=== PATIENT | female | born 1995 | race Caucasian/White ===

== ENCOUNTER 2017-04-09 12:33 | Emergency (ER) | payer BC, SELFPAY ==
[2017-04-09 12:41] VITALS: BP 110/76; PULSE 110; RESP 20; TEMP 36.6; O2SAT 97; BMI 18.4
[2017-04-09 12:53] LABS: UTC Influenza A Antigen Positive (Negative); UTC Influenza B Antigen Negative (Negative)
--- NOTE | 2017-04-09 13:06 | HMH.EDUTC ---
[facility] [place]: Flu Disposition: Home, Self-Care Condition on Discharge: Good Instructions: Influenza Additional Instructions: Increase fuids rest Precautions discussed with patient See primary care this week if no improvement If symptoms worsen or do not improve return or be seen in the ER Tylenol and ibuprofen as needed for pain or fever Time of Disposition: 13:10 Medical Decision Making Vital Signs: 04/09/17 12:41 Temperature 97.8 F Temperature Source Temporal Artery Scan Pulse Rate [Brachial] 110 H Respiratory Rate 20 Blood Pressure [Right Arm] 110/76 Blood Pressure Mean [Right Arm] 87 Blood Pressure Source [Right Arm] Automatic Cuff Blood Pressure Position [Right Arm] Sitting 02 Sat by Pulse Oximetry 97 Oxygen Delivery Method Room Air - Lab Data Lab Results 04/09/17 12:53: Influenza Type A Ag Positive A, Influenza Type B Ag Negative - Malachi Inquiry Pt receiving controlled substance: No [facility] [place] - General Chief complaint: Urgent Treatment Center Stated complaint: FLU LIKE SYMPTOMS Time Seen by Provider: 04/09/17 13:06 Mode of Arrival: Ambulatory Source of Information: Patient Limitations: No Limitations Description of Symptoms (Recalled from Triage Doc. by RN): FEVER/ H/A HEENT Symptoms (Recalled from RN notes): Yes Resp Symptoms (Recalled from RN notes): No Skin Symptoms (Recalled from RN notes): No MS Symptoms (Recalled from RN notes): No Functional Status (Recalled from RN notes): NA - History of Present Illness Provider Complaint: 22-year-old female presents with body aches, chills, fever, tiredness, and congestion since last Sunday. - Related Data Home Medications Medication Instructions Recorded Confirmed No Known Home Medications [No 04/09/17 04/09/17 Known Home Medications] Allergies Allergy/AdvReac Type Severity Reaction Status Date / Time No Known Allergies Allergy Verified 04/09/17 12:45 - Worker's Comp Is this a Worker's Comp case?: No [facility] History I have reviewed the patient's past medical history: Yes - *Social History Alcohol Intake: never - Psychiatric History Expresses thoughts of harming self/others: None Suicide Plan Description: No Plan ROS Obtained: Yes All systems reviewed & no additional complaints - Constitutional Constitutional: Reports system reviewed and no additional complaints, except as docu, Reports body ache, Reports chills, Reports fever(s), Reports weakness - Eyes Eyes: Reports system reviewed and no additional complaints, except as docu - ENT Ears, Nose, Mouth, and Throat: Reports system reviewed and no additional complaints, except as docu - Cardiovascular Cardiovascular: Reports system reviewed and no additional complaints, except as docu - Respiratory Respiratory: Yes system reviewed and no additional complaints, except as docu, Yes as per HPI, Yes chest congestion, Yes cough - Gastrointestinal Gastrointestingal: Reports: system reviewed and no additional complaints, except as docu - Musculoskeletal Musculoskeletal: Reports system reviewed and no additional complaints, except as docu - Integumentary/Breasts Skin/Breast: Reports system reviewed and no additional complaints, except as docu - Neurologic Neurologic: Reports system reviewed and no additional complaints, except as docu - Endocrine Endocrine: Reports system reviewed and no additional complaints, except as docu - Hematologic/Lymphatic Henatologic/Lymphatic: Reports system reviewed and no additional complaints, except as docu - Allergic/Immunologic Allergic/Immunologic: Reports system reviewed and no additional complaints, except as docu Physical Exam - General General appearance: alert, in no apparent distress - Head Head exam: atraumatic - Eye Eye exam: Present: normal appearance, PERRL - ENT ENT exam: Present: normal exam, normal oropharynx, TM's normal bilaterally - Neck Neck exam
--- NOTE | 2017-04-09 13:09 | ED_ITS ---
[facility] [place] Clinical Impression: Flu Disposition: Home, Self-Care Condition on Discharge: Good Instructions: Influenza Additional Instructions: Increase fuids rest Precautions discussed with patient See primary care this week if no improvement If symptoms worsen or do not improve return or be seen in the ER Tylenol and ibuprofen as needed for pain or fever Time of Disposition: 13:10 Medical Decision Making Vital Signs: 04/09/17 12:41 Temperature 97.8 F Temperature Source Temporal Artery Scan Pulse Rate [Brachial] 110 H Respiratory Rate 20 Blood Pressure [Right Arm] 110/76 Blood Pressure Mean [Right Arm] 87 Blood Pressure Source [Right Arm] Automatic Cuff Blood Pressure Position [Right Arm] Sitting 02 Sat by Pulse Oximetry 97 Oxygen Delivery Method Room Air - Lab Data Lab Results 04/09/17 12:53: Influenza Type A Ag Positive A, Influenza Type B Ag Negative - Malachi Inquiry Pt receiving controlled substance: No [facility] [place] - General Chief complaint: Urgent Treatment Center Stated complaint: FLU LIKE SYMPTOMS Time Seen by Provider: 04/09/17 13:06 Mode of Arrival: Ambulatory Source of Information: Patient Limitations: No Limitations Description of Symptoms (Recalled from Triage Doc. by RN): FEVER/ H/A HEENT Symptoms (Recalled from RN notes): Yes Resp Symptoms (Recalled from RN notes): No Skin Symptoms (Recalled from RN notes): No MS Symptoms (Recalled from RN notes): No Functional Status (Recalled from RN notes): NA - History of Present Illness Provider Complaint: 22-year-old female presents with body aches, chills, fever, tiredness, and congestion since last Sunday. - Related Data Home Medications Medication Instructions Recorded Confirmed No Known Home Medications [No 04/09/17 04/09/17 Known Home Medications] Allergies Allergy/AdvReac Type Severity Reaction Status Date / Time No Known Allergies Allergy Verified 04/09/17 12:45 - Worker's Comp Is this a Worker's Comp case?: No [facility] History I have reviewed the patient's past medical history: Yes - *Social History Alcohol Intake: never - Psychiatric History Expresses thoughts of harming self/others: None Suicide Plan Description: No Plan ROS Obtained: Yes All systems reviewed & no additional complaints - Constitutional Constitutional: Reports system reviewed and no additional complaints, except as docu, Reports body ache, Reports chills, Reports fever(s), Reports weakness - Eyes Eyes: Reports system reviewed and no additional complaints, except as docu - ENT Ears, Nose, Mouth, and Throat: Reports system reviewed and no additional complaints, except as docu - Cardiovascular Cardiovascular: Reports system reviewed and no additional complaints, except as docu - Respiratory Respiratory: Yes system reviewed and no additional complaints, except as docu, Yes as per HPI, Yes chest congestion, Yes cough - Gastrointestinal Gastrointestingal: Reports: system reviewed and no additional complaints, except as docu - Musculoskeletal Musculoskeletal: Reports system reviewed and no additional complaints, except as docu - Integumentary/Breasts Skin/Breast: Reports system reviewed and no additional complaints, except as docu - Neurologic Neurologic: Reports s
== END 2017-04-09 13:13 | disposition home or self-care (01) ==
PROVIDERS: Emergency Provider Nurse Practitioner Family; Family Provider Family Medicine
DX: J11.1 Influenza due to unidentified influenza virus with other respiratory manifestations (principal)
CPT/HCPCS: 87804; 99201

== ENCOUNTER 2017-05-22 05:59 | Emergency (ER) | payer BC, SELFPAY ==
[2017-05-22 06:02] VITALS: BP 133/83; PULSE 72; RESP 14; TEMP 36.5; O2SAT 98; BMI 18.4
--- NOTE | 2017-05-22 06:13 | XR_ITS ---
XR knee LT 3V HISTORY: Left knee pain ITS.REASON: pain ORDERING PHYSICIAN: Juaquin Tejeda MD PATIENT AGE: 22 years COMPARISON: 03/18/2007 FINDINGS: No fracture or dislocation. No lytic or blastic change. Normal mineralization. No significant arthritic changes evident. No other significant findings IMPRESSION: Negative left Knee
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
[2017-05-22 07:03] VITALS: BP 118/78; PULSE 72; RESP 14; TEMP 37; O2SAT 100
== END 2017-05-22 07:05 | disposition home or self-care (01) ==
PROVIDERS: Emergency Provider Emergency Medicine; Family Provider Family Medicine
DX: M23.92 Unspecified internal derangement of left knee (principal); F17.210 Nicotine dependence, cigarettes, uncomplicated
CPT/HCPCS: 73562; 99282

== ENCOUNTER → 2018-06-19 10:32 | Outpatient (CLI) | payer OTHER, SELFPAY ==
[2018-06-19 11:35] LABS: Basophils # 0.1 K/mm3 (0-0.2); Basophils % 0.6 % (0.1-2.0); Eosinophils # 0.2 K/mm3 (0.0-0.4); Hematocrit 40.8 % (37.0-47.0); Hemoglobin 13.6 g/dL (12.2-16.2); Lymphocytes # 3.2 K/mm3 (0.7-4.5); Mean Corpuscular HGB Conc 33.2 g/dL (31.8-35.4); Mean Corpuscular Hemoglobin 31.6 pg (27.0-31.2); Mean Corpuscular Volume 95.3 fl (81-99); Mean Platelet Volume 9.7 fl (7.4-10.4); Monocytes # 0.4 K/mm3 (0.1-1.0); Monocytes % 4.4 % (1.7-9.3); Platelet Count 225 K/mm3 (142-424); Red Blood Count 4.29 M/mm3 (4.20-5.40); Red Cell Distribution Width 12.8 % (11.5-17.5); White Blood Count 9.9 K/mm3 (4.8-10.8)
[2018-06-19 13:13] LABS: Monoscreen (Rapid) Negative (Negative)
== END ==
PROVIDERS: Visit Provider Nurse Practitioner Family
DX: R07.0 Pain in throat (principal); R53.83 Other fatigue
CPT/HCPCS: 36415; 85025; 86318

== ENCOUNTER → 2018-07-17 14:44 | Outpatient (CLI) | payer OTHER, SELFPAY ==
[2018-07-17 15:25] LABS: Basophils # 0.1 K/mm3 (0-0.2); Basophils % 0.9 % (0.1-2.0); Eosinophils # 0.1 K/mm3 (0.0-0.4); Eosinophils % 1.6 % (0.1-12.0); Lymphocytes % 29.3 % (10-50); Mean Corpuscular HGB Conc 33.3 g/dL (31.8-35.4); Mean Corpuscular Hemoglobin 31.4 pg (27.0-31.2); Mean Corpuscular Volume 94.1 fl (81-99); Mean Platelet Volume 9.7 fl (7.4-10.4); Monocytes # 0.4 K/mm3 (0.1-1.0); Monocytes % 5.4 % (1.7-9.3); Neutrophils # 4.3 K/mm3 (1.8-7.8); Neutrophils % 62.7 % (37.0-80.0); Platelet Count 218 K/mm3 (142-424); Red Blood Count 4.46 M/mm3 (4.20-5.40); Red Cell Distribution Width 12.7 % (11.5-17.5); White Blood Count 6.9 K/mm3 (4.8-10.8)
[2018-07-19 06:23] LABS: Rubella Antibodies, IgG 1.75 index (Immune >0.99)
[2018-07-19 07:24] LABS: HIV Screen 4th Generation wRfx Non Reactive (Non Reactive)
[2018-07-19 10:11] LABS: Hepatitis B Surface Antigen Negative (Negative); Hepatitis C Antibody <0.1 s/co ratio (0.0-0.9); Rapid Plasma Reagin Ab Titer Non Reactive (NonRea<1:1)
== END ==
PROVIDERS: Visit Provider Nurse Practitioner Obstetrics & Gynecology
DX: Z34.90 Encounter for supervision of normal pregnancy, unspecified, unspecified trimester (principal)
CPT/HCPCS: 36415; 85025; 86592; 86703; 86762; 86850; 87340; 87380; G0432

== ENCOUNTER → 2018-07-23 12:53 | Outpatient (CLI) | payer OTHER, SELFPAY ==
--- NOTE | 2018-07-23 12:58 | US_ITS ---
US OB transvaginal HISTORY: ITS.REASON: US OB Dates ORDERING PHYSICIAN: Michael Jackson MD PATIENT AGE: 23 years COMPARISON: None FINDINGS: An intrauterine gestational sac is present with a pole with a crown-rump length of 0.46cm correlating to gestational age of 6w2d. heart tones are present with an FHR of 119 bpm's. Yolk sac is noted. There is a 2.4 cm left corpus luteum cyst. IMPRESSION: Live intrauterine gestation of 6 weeks 2 days. Estimated due date by ultrasound is 03/16/2019
== END ==
PROVIDERS: PCP Family Medicine; Visit Provider Nurse Practitioner Obstetrics & Gynecology
DX: O26.841 Uterine size-date discrepancy, first trimester (principal)
CPT/HCPCS: 76817

== ENCOUNTER 2018-09-08 18:06 | Outpatient (CLI) | payer OTHER, SELFPAY ==
[2018-09-08 18:13] VITALS: BP 94/61; PULSE 74; RESP 16; TEMP 36.7; O2SAT 96; BMI 17.7
[2018-09-08 18:48] LABS: Basophils % 0.4 % (0.1-2.0); Eosinophils # 0.1 K/mm3 (0.0-0.4); Eosinophils % 0.5 % (0.1-12.0); Lymphocytes # 2.7 K/mm3 (0.7-4.5); Lymphocytes % 23.6 % (10-50); Mean Corpuscular HGB Conc 31.6 g/dL (31.8-35.4); Mean Corpuscular Hemoglobin 30.6 pg (27.0-31.2); Mean Corpuscular Volume 96.9 fl (81-99); Mean Platelet Volume 9.2 fl (7.4-10.4); Monocytes # 0.4 K/mm3 (0.1-1.0); Monocytes % 3.5 % (1.7-9.3); Neutrophils # 8.3 K/mm3 (1.8-7.8); Platelet Count 246 K/mm3 (142-424); Red Blood Count 4.23 M/mm3 (4.20-5.40); Red Cell Distribution Width 12.9 % (11.5-17.5); White Blood Count 11.5 K/mm3 (4.8-10.8)
[2018-09-08 18:56] LABS: Anion Gap 15.8 mEq/L (5-15); Blood Urea Nitrogen 7 mg/dL (7-18); Calcium 8.9 mg/dL (8.5-10.1); Carbon Dioxide 24 mmol/L (21.0-32.0); Chloride 102 mmol/L (98-107); Creatinine Clearance Estimated 137 mL/min (50-200); Creatinine,Serum 0.55 mg/dL (0.55-1.02); Estimated Glomerular Filt Rate 137 ml/min (>60); GFR (African American) 166 ML/MIN (>60); Glucose 92 mg/dL (74-106); Potassium 3.8 mmoL/L (3.5-5.1); Sodium 138 mmol/L (136-145)
== END 2018-09-08 20:37 | disposition home or self-care (01) ==
LOC: OBOUT 18:08 → OB 18:09
PROVIDERS: PCP Family Medicine; Visit Provider Nurse Practitioner Obstetrics & Gynecology
DX: O21.0 Mild hyperemesis gravidarum (principal); Z3A.13 13 weeks gestation of pregnancy
CPT/HCPCS: 80048; 85025; 94761; 96360; 96361; 96367

== ENCOUNTER → 2018-10-30 14:49 | Outpatient (CLI) | payer OTHER, SELFPAY ==
--- NOTE | 2018-10-30 14:55 | US_ITS ---
PROCEDURE: US OB /MATERNAL DETAIL CLINICAL INDICATION: US OB Complete COMPARISON: OBTV US OB transvaginal from 07/23/2018 FINDINGS: Single viable intrauterine gestation. Breech position. Placenta: Anteriorplacenta grade 1. There is average amount fluid. The cervix appears satisfactory. Closed and measuring average 4 cm in length. Complete survey performed and was unremarkable on the submitted images as in PACS. No discrete anomalies identified on survey imaging by technologist. Active fetus. Three-vessel cord with satisfactory umbilical cord insertion. 4- chamber heart noted. Survey of brain & ventricles Unremarkable. Face and neck survey unremarkable. Diaphragm and chest views unremarkable. Abdomen: Both kidneys noted and unremarkable. Stomach noted and satisfactory. Spine: Survey of the spine satisfactory with no anomalies identified nor imaged. Both arms and legs noted. Amniotic Fluid: Adequate. Maternal adnexa: No significant findings. Measurements: Average ultrasound age 20.14 week. Gestational Age 20.14 week Estimated due date by ultrasound age 0103/18/2019. Estimated weight 347.5 ggrams. BPD = 19 weeks 6 days OFD = 20 weeks 3 days HC = 19 weeks 3 days AC = 20 weeks 4 days FL = 20 weeks 4 days Growth Percentile= 40 percent% Heart Rate = 156 bpm Cerebellum = 20 weeks 4 days Humerus = 20 weeks 5 days HC/AC is 1.1 CI is 0.76 FL/BPD is 0.73 FL/AC is 0.22 IMPRESSION: There is a single live fetus present in breech presentation with an average ultrasound age of 20 weeks and 1 day. heart and body motion noted. No obvious anomalies. All parameters correlate. Please see above for detail. Dictated by: Erick Mcgarry MD 10/30/2018 17:29 Signed by: <Electronically signed by Erick Mcgarry MD in [place]> 10/30/2018 17:29
== END ==
PROVIDERS: PCP Family Medicine; Visit Provider Nurse Practitioner Obstetrics & Gynecology
DX: Z36.0 Encounter for antenatal screening for chromosomal anomalies (principal)
CPT/HCPCS: 76811

== ENCOUNTER 2018-12-11 12:38 | Outpatient (CLI) | payer OTHER, SELFPAY ==
[2018-12-11 12:41] VITALS: BMI 19.2
[2018-12-11 12:56] VITALS: BP 119/63; PULSE 85; RESP 18; TEMP 36.7; O2SAT 97; BMI 19.2
[2018-12-11 13:01] LABS: Microscopic, Urine URINE MICROSCOPIC (MICROSCOPIC)
[2018-12-11 13:20] LABS: Appearance,Urine CLEAR (Clear); Bilirubin,Urine Negative (Negative); Blood, Urine Negative (Negative); Color,Urine YELLOW (Yellow); Glucose,Urine (UA) Negative (Negative); Ketones,Urine Negative (Negative); Leukocyte Esterase,Urine TRACE (Negative); Nitrate,Urine Negative (Negative); Protein,Urine Negative (Negative); Urobilinogen,Urine 0.2 EU/dl (0.2)
[2018-12-11 13:29] LABS: Amphetamine/Metha Screen,Urine Negative ng/mL (<1000); Barbiturates Screen,Urine Negative ng/mL (<200); Benzodiazepines Screen,Urine Negative ng/mL (<200); Cannabinoid Screen,Urine Negative ng/mL (<50); Cocaine Screen,Urine Negative ng/mL (<300); Methadone Screen,Urine Negative ng/mL (<300); Opiate Screen,Urine Negative ng/mL (<300); Phencyclidine Screen,Urine Negative ng/mL (<25)
[2018-12-11 13:32] LABS: Bacteria,Urine Trace /lpf
[2018-12-11 14:04] LABS: Fetal Fibronectin (Rapid) Negative (Negative)
== END 2018-12-11 14:20 | disposition home or self-care (01) ==
LOC: OBOUT 12:39 → OB 12:39
PROVIDERS: PCP Family Medicine; Visit Provider Nurse Practitioner Obstetrics & Gynecology
DX: O47.02 False labor before 37 completed weeks of gestation, second trimester (principal); Z3A.26 26 weeks gestation of pregnancy
CPT/HCPCS: 59025; 80305; 81001; 82731

== ENCOUNTER → 2018-12-19 08:42 | Outpatient (CLI) | payer OTHER, SELFPAY ==
[2018-12-19 09:26] LABS: Glucose,Fasting 67 mg/dL (60-105)
[2018-12-19 10:53] LABS: Glucose 1 Hour 78 mg/dL (74-106)
== END ==
PROVIDERS: Visit Provider Nurse Practitioner Obstetrics & Gynecology
DX: Z34.90 Encounter for supervision of normal pregnancy, unspecified, unspecified trimester (principal)
CPT/HCPCS: 36415; 82951

== ENCOUNTER 2019-01-24 13:05 | Outpatient (CLI) | payer OTHER, SELFPAY ==
[2019-01-24 13:17] VITALS: BMI 22.3
[2019-01-24 13:25] LABS: Microscopic, Urine URINE MICROSCOPIC (MICROSCOPIC)
[2019-01-24 13:26] LABS: Appearance,Urine CLEAR (Clear); Bilirubin,Urine Negative (Negative); Blood, Urine Negative (Negative); Color,Urine YELLOW (Yellow); Glucose,Urine (UA) Negative (Negative); Ketones,Urine Negative (Negative); Leukocyte Esterase,Urine TRACE (Negative); Nitrate,Urine Negative (Negative); Protein,Urine Negative (Negative); Specific Gravity, Urine <= 1.005 (1.005-1.030); Urobilinogen,Urine 0.2 EU/dl (0.2)
[2019-01-24 13:33] VITALS: BP 116/68; PULSE 74; RESP 17; TEMP 36.5; O2SAT 98
[2019-01-24 13:35] VITALS: BMI 28.5
[2019-01-24 13:35] LABS: Amphetamine/Metha Screen,Urine Negative ng/mL (<1000); Barbiturates Screen,Urine Negative ng/mL (<200); Benzodiazepines Screen,Urine Negative ng/mL (<200); Cannabinoid Screen,Urine Negative ng/mL (<50); Cocaine Screen,Urine Negative ng/mL (<300); Methadone Screen,Urine Negative ng/mL (<300); Opiate Screen,Urine Negative ng/mL (<300); Phencyclidine Screen,Urine Negative ng/mL (<25)
[2019-01-24 13:48] LABS: Alanine Aminotransferase 9 U/L (12-78); Anion Gap 10.8 mEq/L (5-15); Aspartate Amino Transferase 12 U/L (15-37); Blood Urea Nitrogen 7 mg/dL (7-18); Calcium 8.7 mg/dL (8.5-10.1); Carbon Dioxide 24 mmol/L (21.0-32.0); Chloride 103 mmol/L (98-107); Creatinine Clearance Estimated 178 mL/min (50-200); Creatinine,Serum 0.53 mg/dL (0.55-1.02); Estimated Glomerular Filt Rate 143 ml/min (>60); GFR (African American) 173 ML/MIN (>60); Glucose 123 mg/dL (74-106); Potassium 3.8 mmoL/L (3.5-5.1); Sodium 134 mmol/L (136-145); Uric Acid 3.6 mg/dL (2.6-7.2)
[2019-01-24 14:01] LABS: Basophils % 0.2 % (0.1-2.0); Eosinophils # 0.1 K/mm3 (0.0-0.4); Eosinophils % 0.7 % (0.1-12.0); Hematocrit 37.7 % (37.0-47.0); Hemoglobin 12.4 g/dL (12.2-16.2); Lymphocytes # 1.5 K/mm3 (0.7-4.5); Lymphocytes % 9.8 % (10-50); Mean Corpuscular Hemoglobin 32.2 pg (27.0-31.2); Mean Corpuscular Volume 97.6 fl (81-99); Mean Platelet Volume 10.1 fl (7.4-10.4); Monocytes # 0.6 K/mm3 (0.1-1.0); Monocytes % 3.8 % (1.7-9.3); Neutrophils # 12.9 K/mm3 (1.8-7.8); Neutrophils % 85.4 % (37.0-80.0); Platelet Count 210 K/mm3 (142-424); Red Blood Count 3.87 M/mm3 (4.20-5.40)
[2019-01-24 14:07] LABS: MANUAL DIFFERENTIAL MANUAL DIFFERENTIAL (MANUAL DIFF)
[2019-01-24 14:27] LABS: Lymphocytes % 12 % (10-50); Monocytes % 2 % (2-9); Neutrophils % 86 % (42-76); Platelet Estimate Normal; RBC Morphology Normal; Total Cells Counted 100
[2019-01-24 14:34] LABS: D-Dimer 866 ng/mL (0-400)
[2019-01-24 15:26] LABS: Activated Partial Thrombo Time 25.7 seconds (23.6-34.0); Fibrinogen 365 mg/dL (204-500); INR 0.96 (0.9-1.1)
== END 2019-01-24 15:15 | disposition home or self-care (01) ==
LOC: OBOUT 13:07 → OB 13:07
PROVIDERS: PCP Family Medicine; Visit Provider Nurse Practitioner Obstetrics & Gynecology
DX: O26.893 Other specified pregnancy related conditions, third trimester (principal); Z3A.32 32 weeks gestation of pregnancy; R42 Dizziness and giddiness; R55 Syncope and collapse; R51 Headache
CPT/HCPCS: 36415; 59025; 80048; 80305; 81001; 84450; 84460; 84550; 85007; 85025; 85378; 85384; 85610; 85730

== ENCOUNTER → 2019-02-03 07:58 | Outpatient (CLI) | payer OTHER, SELFPAY ==
--- NOTE | 2019-02-03 08:09 | US_ITS ---
PROCEDURE: US OB FOLLOW UP CLINICAL INDICATION: SGA Small for gestational age COMPARISON: US OB /MATERNAL DETAIL from 10/30/2018 FINDINGS: There is a single live fetus which is in cephalic presentation. Average ultrasound age is 34 weeks 4 days with an estimated weight of 2359 g which is 44th percentile. Following parameters are obtained BPD 35 weeks 5 days, OFD 35 weeks 2 days, HC 35 weeks 0 days, AC 34 weeks 2 days, FL 33 weeks 2 days. Heart rate is 144 beats per minute. All parameters correlate. EUGENE is normal at 10 cm. Cervix is closed at 3 cm. The fetus urinary bladder is somewhat prominent but may only be due to the phase emptying. Placenta is anterior and grade 2 IMPRESSION: There is a single live fetus which is in cephalic presentation. Average ultrasound age is 34 weeks 4 days with an estimated weight of 2359 g which is 44th percentile. Normal EUGENE. Anterior grade 2 placenta Dictated by: Erick Mcgarry MD 02/03/2019 20:01 Electronically signed by Erick Mcgarry MD in [place] 02/03/2019 20:01
== END ==
PROVIDERS: PCP Family Medicine; Visit Provider Nurse Practitioner Obstetrics & Gynecology
DX: O36.5131 Maternal care for known or suspected placental insufficiency, third trimester, fetus 1 (principal)
CPT/HCPCS: 76816

== ENCOUNTER → 2019-02-12 16:58 | Outpatient (CLI) | payer OTHER, SELFPAY | PROVIDERS: Visit Provider Nurse Practitioner Obstetrics & Gynecology | DX: Z34.90 Encounter for supervision of normal pregnancy, unspecified, unspecified trimester (principal) | CPT/HCPCS: 86403 ==

== ENCOUNTER 2019-02-13 19:41 | Outpatient (CLI) | payer OTHER, SELFPAY ==
[2019-02-13 20:04] VITALS: BP 130/65; PULSE 86; RESP 16; TEMP 36.4; O2SAT 94; BMI 23.1
[2019-02-13 20:09] VITALS: BMI 23.0
[2019-02-13 20:27] LABS: Microscopic, Urine URINE MICROSCOPIC (MICROSCOPIC)
[2019-02-13 20:28] LABS: Appearance,Urine CLEAR (Clear); Bilirubin,Urine Negative (Negative); Blood, Urine Negative (Negative); Color,Urine YELLOW (Yellow); Glucose,Urine (UA) Negative (Negative); Ketones,Urine Negative (Negative); Leukocyte Esterase,Urine Negative (Negative); Nitrate,Urine Negative (Negative); Protein,Urine Negative (Negative); Urobilinogen,Urine 0.2 EU/dl (0.2)
[2019-02-13 20:43] LABS: Amorphous Sediment,Urine Trace /lpf; Bacteria,Urine Trace /lpf; WBC,Urine Occasional #/hpf (0-3)
[2019-02-13 20:49] LABS: Amphetamine/Metha Screen,Urine Negative ng/mL (<1000); Barbiturates Screen,Urine Negative ng/mL (<200); Benzodiazepines Screen,Urine Negative ng/mL (<200); Cannabinoid Screen,Urine Negative ng/mL (<50); Cocaine Screen,Urine Negative ng/mL (<300); Methadone Screen,Urine Negative ng/mL (<300); Opiate Screen,Urine Negative ng/mL (<300); Phencyclidine Screen,Urine Negative ng/mL (<25)
== END 2019-02-13 22:35 | disposition home or self-care (01) ==
LOC: OBOUT 19:42 → OB 19:44
PROVIDERS: PCP Family Medicine; Visit Provider Obstetrics & Gynecology
DX: O47.03 False labor before 37 completed weeks of gestation, third trimester (principal); Z3A.35 35 weeks gestation of pregnancy; R10.2 Pelvic and perineal pain; M54.5 Low back pain
CPT/HCPCS: 59025; 80305; 81001; 96360; 96372

== ENCOUNTER 2019-03-04 01:10 | Outpatient (CLI) | payer OTHER, SELFPAY ==
[2019-03-04 01:18] VITALS: BP 116/71; PULSE 85; RESP 16; TEMP 36.6; O2SAT 100; BMI 21.6
[2019-03-04 01:27] LABS: Microscopic, Urine URINE MICROSCOPIC (MICROSCOPIC)
[2019-03-04 01:30] LABS: Appearance,Urine CLEAR (Clear); Bilirubin,Urine Negative (Negative); Blood, Urine Negative (Negative); Color,Urine YELLOW (Yellow); Glucose,Urine (UA) Negative (Negative); Ketones,Urine Negative (Negative); Leukocyte Esterase,Urine Negative (Negative); Nitrate,Urine Negative (Negative); PH,Urine 7.5 (5.0-8.5); Protein,Urine Negative (Negative); Specific Gravity, Urine 1.015 (1.005-1.030); Urobilinogen,Urine 0.2 EU/dl (0.2)
[2019-03-04 01:38] LABS: Amphetamine/Metha Screen,Urine Negative ng/mL (<1000); Barbiturates Screen,Urine Negative ng/mL (<200); Benzodiazepines Screen,Urine Negative ng/mL (<200); Cannabinoid Screen,Urine Negative ng/mL (<50); Cocaine Screen,Urine Negative ng/mL (<300); Methadone Screen,Urine Negative ng/mL (<300); Opiate Screen,Urine Negative ng/mL (<300); Phencyclidine Screen,Urine Negative ng/mL (<25)
[2019-03-04 01:56] LABS: Bacteria,Urine 1+ /lpf
== END 2019-03-04 03:46 | disposition home or self-care (01) ==
LOC: OBOUT 01:11 → OB 01:11
PROVIDERS: PCP Family Medicine; Referring Provider Nurse Practitioner Obstetrics & Gynecology; Visit Provider Obstetrics & Gynecology
DX: O26.893 Other specified pregnancy related conditions, third trimester (principal); Z3A.38 38 weeks gestation of pregnancy
CPT/HCPCS: 59025; 80305; 81001; 96360

== ENCOUNTER 2019-03-10 00:51 | Inpatient (IN) ==
[2019-03-10 05:49] LABS: Microscopic, Urine URINE MICROSCOPIC (MICROSCOPIC)
[2019-03-10 05:52] LABS: Basophils # 0.1 K/mm3 (0-0.2); Basophils % 0.3 % (0.1-2.0); Eosinophils # 0.2 K/mm3 (0.0-0.4); Eosinophils % 0.9 % (0.1-12.0); Hemoglobin 11.6 g/dL (12.2-16.2); Lymphocytes # 2.8 K/mm3 (0.7-4.5); Lymphocytes % 16.5 % (10-50); Mean Corpuscular HGB Conc 31.4 g/dL (31.8-35.4); Mean Corpuscular Volume 96.8 fl (81-99); Mean Platelet Volume 10.1 fl (7.4-10.4); Monocytes % 5.9 % (1.7-9.3); Neutrophils # 12.8 K/mm3 (1.8-7.8); Neutrophils % 76.5 % (37.0-80.0); Platelet Count 254 K/mm3 (142-424); Red Blood Count 3.82 M/mm3 (4.20-5.40); Red Cell Distribution Width 13.8 % (11.5-17.5); White Blood Count 16.7 K/mm3 (4.8-10.8)
[2019-03-10 06:09] LABS: Appearance,Urine CLEAR (Clear); Bilirubin,Urine Negative (Negative); Blood, Urine Negative (Negative); Color,Urine YELLOW (Yellow); Glucose,Urine (UA) Negative (Negative); Ketones,Urine Negative (Negative); Leukocyte Esterase,Urine 2+ (Negative); PH,Urine 6.5 (5.0-8.5); Protein,Urine Negative (Negative); Urobilinogen,Urine 0.2 EU/dl (0.2)
[2019-03-10 06:18] LABS: Amorphous Sediment,Urine 2+ /lpf; Amphetamine/Metha Screen,Urine Negative ng/mL (<1000); Bacteria,Urine 3+ /lpf; Barbiturates Screen,Urine Negative ng/mL (<200); Benzodiazepines Screen,Urine Negative ng/mL (<200); Cannabinoid Screen,Urine Negative ng/mL (<50); Cocaine Screen,Urine Negative ng/mL (<300); Methadone Screen,Urine Negative ng/mL (<300); Mucus,Urine Trace /lpf; Opiate Screen,Urine Negative ng/mL (<300); Phencyclidine Screen,Urine Negative ng/mL (<25); WBC,Urine 20-50 #/hpf (0-3)
--- NOTE | 2019-03-10 07:15 | History & Physical Report ---
OB - H&P: HPI Antepartum - History of Present Illness Chief complaint: Pressure and occasional contractions History of present illness: She is a 24-year-old 2 para 1 at 39+ weeks gestational age. She complains of increasing pressure and occasional contractions. As result of that we are going to induce her labor at term. - History of Present Criteria for establishing EDC:: LMP confirmed by 1st trimester US care: good care Ultrasounds: normal 1st trimester US, normal mid trimester US Obstetrical complications: none Medical complications: none [facility] History I have reviewed the patient's past medical history: Yes Medical History: Denies:: Cancer, Diabetes Mellitus Type 1, Diabetes Mellitus Type 2, MRSA *Have you ever received a pneumonia vaccine?: No *Have you received a flu vaccine this season?: Yes Laterality Cases: Bilateral: Tonsillectomy Other Surgeries: No: Amputation: No Fractures: No - *Social History Smoking Status: Current every day smoker Alcohol Intake: current Alcohol Intake Frequency:: a few times a month Substance Use Type: denies use *Occupational Status:: employed *Travel in the last 8 weeks: None Family Hx:: No significant family history Para: 1 Review of Systems - Review of Systems Review of systems:: pertinent systems reviewed and negative unless documented below Meds Home Medications Medication Instructions Recorded Confirmed Type prenat.vits,dl,owd-hero-zjyjx 1 tab PO DAILY 07/17/18 03/10/19 History hydroxyzine pamoate 25 mg capsule 25 mg PO Q6H PRN #120 cap 09/11/18 03/10/19 Rx ondansetron 4 mg disintegrating 4 mg PO Q6H PRN #30 tab 01/31/19 02/26/19 Rx tablet promethazine 12.5 mg tablet 12.5 mg PO NEEDED PRN #0 tab 01/31/19 02/26/19 History Allergies Allergy/AdvReac Type Severity Reaction Status Date / Time No Known Allergies Allergy Verified 02/26/19 09:46 OB - H&P: Exam - Physical Exam Vital signs: Temp Pulse Resp BP Pulse Ox 98.2 F 77 16 113/66 99 03/10/19 05:28 03/10/19 05:28 03/10/19 05:28 03/10/19 05:28 03/10/19 05:28 - Constitutional no acute distress - Routine HEENT Exam Head: Present: normocephalic Eye: Present: EOMI, PERRL ENT: Present: mucous membranes moist - Routine Neck Exam Present: supple, full ROM - Routine Respiratory Exam Absent: accessory muscle use (good air entry bilaterally), respiratory distress, wheezes, crackles - Routine Cardiovascular Exam Present: RRR. Absent: murmur - Routine Abdominal Exam Present: soft, normoactive bowel sounds. Absent: tenderness, distended, guarding - Routine Rectal Exam Patient deferred: visual exam, digital exam - Routine Exam Patient deferred: external exam, groin exam, perineal exam - Routine Extremities Exam Present: full ROM. Absent: cyanosis, edema - Routine Skin Exam Present: intact. Absent: cyanosis - Routine Neurological Exam Present: alert, oriented X3 - Routine Psychiatric Exam Present: normal affect OB - Results - Labs Labs: Short CBC 03/10/19 Range/Units 05:40 WBC 16.7 H (4.8-10.8) K/mm3 Hgb 11.6 L (12.2-16.2) g/dL Hct 37.0 (37.0-47.0) % Plt Count 254 (142-424) K/mm3 Urine 03/10/19 Range/Units 05:05 Urine Color Yellow (Yellow) Urine Appearance Clear (Clear) Urine pH 6.5 (5.0-8.5) Ur Specific Holt 1.020 (1.005-1.030) Urine Protein Negative (Negative) Urine Glucose (UA) Negative (Negative) OB - A/P Antepartum (1) Normal delivery at term Current visit: Yes Status: Acute - Additional Plan Planning to breastfeed?: Yes Plan: induction Additional Information:: I examined her and she is 2 to 3 cm 50% and station -3. I ruptured her membranes and there was clear fluid. The nonstress test is reactive. We will go ahead and start oxytocin.
[2019-03-10 07:30] LABS: Eosinophils % 2 % (0-3); Lymphocytes % 16 % (10-50); Monocytes % 5 % (2-9); Neutrophils % 77 % (42-76); Total Cells Counted 100
[2019-03-10 07:39] LABS: RBC Morphology Normal
--- NOTE | 2019-03-10 09:33 | Progress Note ---
[facility] Anesthesia Checklist - Patient Identification Patient Identification: Arm Band, Verbal (Name & ) - Structural Data Admitted From: Inpatient Planned Operative Procedure/s: labor epidural Consent for Planned Operative Procedure(s) Verified: Yes Verified Documents: History and Physical - Chart Verification Results Verified: CBC, BMP - Additional verifications Patient : Yes Anesthesia Reactions: No Hx Blood Transfusions: No Blood Transfusion Reaction: No Cephalosporin Allergy: No Previous Colonoscopy: No - Cardiovascular Assessment Heart Sounds: S1 & S2 Pulse Strength: Baseline Pulse Rhythm: Regular Peripheral Edema: No - Airway Assessment C-Spine Mobility Assessed: Yes TMJ Mobility Assessed: Yes Dentition: Good Dentition - Neurological Assessment Level of Consciousness: Awake, Alert, Appropriate Hx Seizures: No Numbness or tingling in extremities: No - Anesthesia Plan Anesthesia Risk discussed: Yes Anesthesia Plan: Verified ASA Class: II Anesthesia Type: Epidural [facility] History I have reviewed the patient's past medical history: Yes Medical History: Denies:: Cancer, Diabetes Mellitus Type 1, Diabetes Mellitus Type 2, MRSA *Have you ever received a pneumonia vaccine?: No *Have you received a flu vaccine this season?: Yes Anesthesia experience/problems:: none Laterality Cases: Bilateral: Tonsillectomy Other Surgeries: No: Amputation: No Fractures: No - *Social History Smoking Status: Current every day smoker Alcohol Intake: current Alcohol Intake Frequency:: a few times a month Substance Use Type: denies use *Occupational Status:: employed *Travel in the last 8 weeks: None Family Hx:: No significant family history Para: 1
--- NOTE | 2019-03-10 11:19 | Progress Note ---
Labor Note - Subjective: Date: 03/10/19 Time: 11:19 regular contraction - Objective: NST:: Reactive Contractions:: every 2-3 minutes Cervical Dilation:: 4 Effacement:: 75% Station: -1 Membranes: artificially ruptured - Assessment: Labor progressing?: Yes Cephalopelvic disproportion?: No Patient Problems: All Active Problems Normal delivery at term (Acute) (Acute) - Plan: Anesthesia for epidural?: Yes Continue to labor down?: Yes Plan for ?: No Continue to monitor?: Yes Start pushing?: No
--- NOTE | 2019-03-10 13:47 | Progress Note ---
Labor Note - Subjective: Date: 03/10/19 Time: 13:46 regular contraction - Objective: NST:: Reactive Contractions:: every 2-3 minutes Cervical Dilation:: 8 Station: -1 Membranes: artificially ruptured - Fetus: Monitoring?: Yes monitoring type:: External - Assessment: Labor progressing?: Yes Cephalopelvic disproportion?: No Patient Problems: All Active Problems Normal delivery at term (Acute) (Acute) - Plan: Anesthesia for epidural?: Yes Continue to labor down?: Yes Plan for ?: No Continue to monitor?: Yes Start pushing?: No
--- NOTE | 2019-03-10 14:35 | Procedure Note ---
- Delivery Note Delivery Date:: 03/10/19 Delivery Time:: 14:20 Anesthesia Type: Epidural Was labor medically induced?: Yes Induction method: per pitocin protocol Gestational age (weeks): 39 delivered prior to 39 weeks?: No Gender: Female at 1 minute: 8 at 5 minutes: 9 Delivery Procedure:: She is a 24-year-old 2 now para 2 who was 39+ weeks gestational age. She is been having contractions and pressure and as result of that we elected to induce her labor at term. She was started on IV oxytocin had her membranes ruptured. Under labor epidural she rested full dilation and delivered spontaneously a liveborn female child at 2:20 PM in the afternoon of March 10, 2019. On deliver the head the anterior shoulder then delivered easily followed by the rest the infant's body atraumatically. The baby was vigorous and cried. The oropharynx and nasoph arynx were bulb suction. We allowed the cord to continue to pulsate for approximately 1 minute. The cord is then doubly clamped and cut and the placed on the mother's abdomen for further care. The nurses assigned Apgars of 8 at 1 minute and 9 at 5 minutes. We then obtained cord blood as well as cord pH. She received IV oxytocin. Using gentle traction on the cord and countertraction on the fundus I was able to easily deliver the placenta intact. It had a normal three-vessel cord. She has a positive blood, she is rubella immune and was group B streptococcus negative. She plans to breast-feed. Estimated blood loss was approximate 400 cc. Placental Delivery Description: Spontaneous
[2019-03-11 06:57] LABS: Hematocrit 36.8 % (37.0-47.0); Hemoglobin 11.4 g/dL (12.2-16.2)
--- NOTE | 2019-03-11 10:34 | Progress Note ---
Internal Medicine - PN: Subj *Date: 03/11/19 *Time: 10:33 Interval history: She continues to do very well. She is eating and drinking and ambulating. Her lochia is normal. Exam Vital signs and Labs for Last 24 Hours: Temp Pulse Resp BP Pulse Ox 98.2 F 82 18 110/59 L 99 03/10/19 16:15 03/10/19 16:15 03/10/19 16:15 03/10/19 16:15 03/10/19 05:28 Laboratory Results - last 24 hr 03/10/19 14:32: Cord ABG pH 7.36 03/11/19 06:44: Hgb 11.4 L, Hct 36.8 L I & O for Last 24 hours: Intake & Output 03/08/19 03/09/19 03/10/19 03/11/19 11:59 11:59 11:59 11:59 Weight 150 lb Microbiology Reports for the Last 24 Hours: Microbiology 03/10/19 05:05 Urine,Clean Catch Urine Culture - Preliminary NO GROWTH AFTER 24 HOURS - Constitutional no acute distress Assessment and Plan (1) Normal delivery at term Current visit: Yes Status: Acute Category: Medical Code(s): O80 - Encounter for full-term uncomplicated delivery - Assessment and plan all Dx Assessment and Plan for all problems:: She is doing very well 1 day . Her lochia is normal. We will plan to send her home tomorrow.
[2019-03-11 23:39] VITALS: BP 119/67
--- NOTE | 2019-03-12 10:03 | Discharge Summary ---
General - General Admission date:: 03/10/19 Discharge date: 03/12/19 HPI HPI: She is a 24-year-old 2 para 1 at 39+ weeks gestational age. She was having lots of pressure and occasional contractions. She is quite uncomfortable. As result that we elected to induce her labor at term. Hospital Course Hospital Course: She was started on IV oxytocin had her membranes ruptured. Under labor epidural she progressed to full dilation. She delivered spontaneously a liveborn female child at 2:20 PM in the afternoon of March 10, 2018. The baby weighed 6 pounds 13 ounces and had Apgars of 8 at 1 minute and 9 at 5 minutes. She has done well and has remained afebrile throughout her hospitalization. She is eating and drinking and ambulating. She is bottlefeeding. 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 She has a positive blood, she is rubella immune and was group B streptococcus negative. She is discharged home to follow-up with me in approximately 2 weeks time. She will continue with her vitamins and iron. She was given the usual instructions with respect to limiting her activity, driving and sexual activity. Her condition on discharge is stable. Rhogam Administration: Not Indicated Objective Vital signs: Temp Pulse Resp BP Pulse Ox 98.4 F 67 18 119/67 98 03/11/19 20:00 03/11/19 20:00 03/11/19 20:00 03/11/19 20:00 03/11/19 20:00 no acute distress DS: Diagnosis - Discharge Diagnosis (1) Normal delivery at term Status: Acute Discharge Plan - Patient Discharge Instructions ACTIVITY: No heavy lifting DIET: continue same diet Patient Instructions: DI for Hemorrhage, DI for Labor and Delivery, Vaginal , [facility] Post Discharge Instructions - Follow up Plan Follow up with: Michael Jackson MD [Staff Physician] - 03/26/19 2:00 pm Disposition: Home, Self-Halfway Medications: Home Medications Medication Instructions Recorded Confirmed Type prenat.vits,dl,tjh-zhmh-eiujs 1 tab PO DAILY 07/17/18 03/10/19 History ondansetron 4 mg disintegrating 4 mg PO Q6H PRN #30 tab 01/31/19 03/10/19 Rx tablet promethazine 12.5 mg tablet 12.5 mg PO Q6HP PRN #0 tab 01/31/19 03/10/19 History Prescriptions/Medication Reconciliation: Continued promethazine 12.5 mg tablet 12.5 mg PO Q6HP PRN #0 tab PRN Reason: Nausea prenat.vits,dl,dag-chqz-lkxve 1 tab PO DAILY ondansetron 4 mg disintegrating tablet 4 mg PO Q6H PRN #30 tab PRN Reason: nausea and vomiting - Problem Reconciliation Problems Reviewed?: Yes
== END 2019-03-12 10:25 | disposition home or self-care (01) | DRG 807 ==
LOC: OB 04:57
PROVIDERS: ADMIT Nurse Practitioner Obstetrics & Gynecology; ATTEND Nurse Practitioner Obstetrics & Gynecology
CPT/HCPCS: J2405

== ENCOUNTER → 2019-04-25 10:45 | Outpatient (CLI) | payer OTHER, SELFPAY ==
[2019-04-25 12:04] LABS: Basophils # 0.1 K/mm3 (0-0.2); Basophils % 0.9 % (0.1-2.0); Eosinophils # 0.2 K/mm3 (0.0-0.4); Eosinophils % 3.2 % (0.1-12.0); Hematocrit 45.7 % (37.0-47.0); Hemoglobin 14.1 g/dL (12.2-16.2); Lymphocytes # 2.4 K/mm3 (0.7-4.5); Mean Corpuscular HGB Conc 30.7 g/dL (31.8-35.4); Mean Corpuscular Hemoglobin 29.8 pg (27.0-31.2); Mean Corpuscular Volume 96.8 fl (81-99); Mean Platelet Volume 9.9 fl (7.4-10.4); Monocytes # 0.4 K/mm3 (0.1-1.0); Monocytes % 5.2 % (1.7-9.3); Neutrophils # 4.3 K/mm3 (1.8-7.8); Neutrophils % 58.8 % (37.0-80.0); Platelet Count 243 K/mm3 (142-424); Red Blood Count 4.72 M/mm3 (4.20-5.40); Red Cell Distribution Width 14.1 % (11.5-17.5); White Blood Count 7.4 K/mm3 (4.8-10.8)
[2019-04-25 13:19] LABS: Anion Gap 14.3 mEq/L (5-15); Blood Urea Nitrogen 9 mg/dL (7-18); Calcium 9.1 mg/dL (8.5-10.1); Carbon Dioxide 29 mmol/L (21.0-32.0); Chloride 106 mmol/L (98-107); Creatinine,Serum 0.85 mg/dL (0.55-1.02); Estimated Glomerular Filt Rate 82 ml/min (>60); GFR (African American) 99 ML/MIN (>60); Glucose 67 mg/dL (74-106); Potassium 4.3 mmoL/L (3.5-5.1); Sodium 145 mmol/L (137-145)
[2019-04-25 13:21] LABS: HCG Qualitative, Serum Negative (Negative)
== END ==
PROVIDERS: Visit Provider Nurse Practitioner Obstetrics & Gynecology
DX: Z01.818 Encounter for other preprocedural examination (principal); Z30.09 Encounter for other general counseling and advice on contraception
CPT/HCPCS: 36415; 80048; 84703; 85025

== ENCOUNTER → 2019-09-15 13:02 | Outpatient (CLI) | payer OTHER, SELFPAY ==
[2019-09-15 19:04] LABS: Coronavirus 19 IgG Antibody Negative (Negative); Coronavirus 19 IgM Antibody Negative (Negative)
== END ==
PROVIDERS: PCP Family Medicine; Visit Provider Family Medicine
DX: Z03.818 Encounter for observation for suspected exposure to other biological agents ruled out (principal)
CPT/HCPCS: 86328

== ENCOUNTER 2019-11-02 16:37 | Emergency (ER) | payer OTHER, SELFPAY ==
[2019-11-02 16:49] VITALS: BP 109/82; PULSE 82; RESP 19; TEMP 36.5; O2SAT 99; BMI 17.7
--- NOTE | 2019-11-02 17:00 | HMH.EDUTC ---
[facility] [place] Disposition Clinical Impression: URI (upper respiratory infection) Qualifiers: URI type: unspecified URI Qualified Code(s): J06.9 - Acute upper respiratory infection, unspecified Disposition: Home, Self-Care Condition on Discharge: Good Instructions: Sore Throat, Sinusitis, DI for Sinusitis, Preventing the Spread of Coronavirus Discharge Instructions Additional Instructions: *Monitor Temp, Over the counter Motrin or Tylenol as directed/as needed Tylenol every 4 hours and Motrin every 6 hours (as long as your family doctor has told you that you can take it) for fever or pain. and straight to ER if unable to lower temp less than 101.0 after medication given *Warm salt water gargles may help to soothe the throat *Throat Lozenges *Warm fluids like tea with honey may help to soothe the throat *Sleep elevated *Humidifier/Vaporizer *Flonase 2 sprays in each nostril daily but be aware that it may take 2-3 days before you notice improvement Follow up IMMEDIATELY for new or worsening symptoms or no Noticeable improvement over the next 48-72 hours. 911 for difficulty breathing or swallowing Call back to the [facility] for your COVID test results Prescriptions: Fluticasone Propionate [Flonase 50mcg nasal spray 16gm] 1 - 2 spr NS DAILY #1 bottle Transmission Status: Received by [id number] methylPREDNISolone [Medrol 4mg tab] 4 mg PO DIRECTED #21 tab Transmission Status: Received by [id number] Azithromycin [Z-Trevor 250mg Tab] 250 mg PO DIRECTED #6 tab Transmission Status: Received by [id number] Referrals: PCP,No [Primary Care Provider] - As needed Forms: Work/School Release Time of Disposition: 17:06 Medical Decision Making - Malachi Inquiry Pt receiving controlled substance: No Malachi was queried for this patient: No Vital Signs: 11/02/19 16:49 11/02/19 17:20 Temperature 97.7 F 97.7 F Temperature Source Oral Oral Pulse Rate 82 Pulse Rate [Radial] 82 Respiratory Rate 19 19 Blood Pressure 109/82 L Blood Pressure [Right Arm] 109/82 L Blood Pressure Mean [Right Arm] 91 Blood Pressure Source Automatic Cuff Blood Pressure Source [Right Arm] Automatic Cuff Blood Pressure Position Sitting Blood Pressure Position [Right Arm] Sitting 02 Sat by Pulse Oximetry 99 Oxygen Delivery Method Room Air Room Air Orders (Tests/Meds): ORDERS Category Date Time Status Coronavirus [SARS-CoV-2, [place]] Stat Lab 11/02/19 17:[address] [facility] [place] HPI - General Stated complaint: Fever, cough, loss of taste/smell Time Seen by Provider: 11/02/19 17:00 Mode of Arrival: Ambulatory Source of Information: Patient Limitations: No Limitations Description of Symptoms (Recalled from Triage Doc. by RN): fever, cough, loss of taste. HEENT Symptoms (Recalled from RN notes): Yes Resp Symptoms (Recalled from RN notes): No Skin Symptoms (Recalled from RN notes): No MS Symptoms (Recalled from RN notes): No Functional Status (Recalled from RN notes): wnl - History of Present Illness Provider Complaint: Patient states that she hasnt been feeling well for several days States that she has been having sinus pain and pressure, cough, sore throat and loss of taste and smell States that she was tested for COVID several months ago and was negative but today she was feeling worse so she come in to get checked - Related Data Previous Rx's Medication Instructions Recorded citalopram 10 mg tablet 10 mg PO DAILY #30 tab 08/05/19 Azithromycin [Z-Trevor 250mg Tab] 250 mg PO DIRECTED #6 tab 11/02/19 Fluticasone Propionate [Flonase 1 - 2 spr NS DAILY #1 bottle 11/02/19 50mcg nasal spray 16gm] methylPREDNISolone [Medrol 4mg 4 mg PO DIRECTED #21 tab 11/02/19 tab] Allergies Allergy/AdvReac Type Severity Reaction Status Date / Time No Known Allergies Allergy Verified 08/05/19 13:41 - Worker's Comp Is this a Worker's Comp case?: No [facility] History - Hepatitis A Screen Drug use history?:
[2019-11-02 17:20] VITALS: BP 109/82; PULSE 82; RESP 19; TEMP 36.5; O2SAT 99
[2019-11-04 16:09] LABS: Covid-19 Nasal PCR Sendout Lex NOT DETECTED
== END 2019-11-02 17:21 | disposition home or self-care (01) ==
PROVIDERS: Emergency Provider Nurse Practitioner
DX: J06.9 Acute upper respiratory infection, unspecified (principal); Z20.828 Contact with and (suspected) exposure to other viral communicable diseases; F17.210 Nicotine dependence, cigarettes, uncomplicated; Z90.09 Acquired absence of other part of head and neck
CPT/HCPCS: 99201; U0004

== ENCOUNTER → 2020-02-04 12:51 | Outpatient (REF) | payer OTHER, SELFPAY ==
[2020-02-04 21:57] LABS: Covid-19 Nasal PCR Sendout Lex NOT DETECTED
== END ==
LOC: COVID.OUT 12:51
PROVIDERS: Visit Provider Emergency Medicine
DX: Z03.818 Encounter for observation for suspected exposure to other biological agents ruled out (principal)
CPT/HCPCS: U0004

== ENCOUNTER → 2020-08-06 12:49 | Outpatient (CLI) | payer OTHER, SELFPAY ==
[2020-08-06 13:20] LABS: Basophils # 0.1 K/mm3 (0-0.2); Basophils % 1.1 % (0.1-2.0); Eosinophils # 0.3 K/mm3 (0.0-0.4); Eosinophils % 3.2 % (0.1-12.0); Hematocrit 48.1 % (37.0-47.0); Hemoglobin 15.3 g/dL (12.2-16.2); Lymphocytes # 2.4 K/mm3 (0.7-4.5); Mean Corpuscular HGB Conc 31.8 g/dL (31.8-35.4); Mean Corpuscular Hemoglobin 31.1 pg (27.0-31.2); Mean Corpuscular Volume 97.8 fl (81-99); Mean Platelet Volume 9.5 fl (7.4-10.4); Monocytes # 0.5 K/mm3 (0.1-1.0); Monocytes % 6.4 % (1.7-9.3); Neutrophils # 4.5 K/mm3 (1.8-7.8); Neutrophils % 58.4 % (37.0-80.0); Platelet Count 253 K/mm3 (142-424); Red Blood Count 4.92 M/mm3 (4.20-5.40); Red Cell Distribution Width 12.3 % (11.5-17.5); White Blood Count 7.7 K/mm3 (4.8-10.8)
[2020-08-06 14:31] LABS: Chloride 103 mmol/L (98-107); Potassium 4.3 mmoL/L (3.5-5.1); Sodium 141 mmol/L (136-145)
[2020-08-06 14:33] LABS: Blood Urea Nitrogen 9 mg/dl (7-17); Estimated Glomerular Filt Rate 87 ml/min (>60); GFR (African American) 106 ML/MIN (>60)
[2020-08-06 14:34] LABS: Alanine Aminotransferase 27 U/L (12-78); Albumin/Globulin Ratio 1.7 (1.1-1.8); Alkaline Phosphatase 51 U/L (38-126); Anion Gap 13.3 mEq/L (5-15); Aspartate Amino Transferase 29 U/L (14-36); Bilirubin,Total 0.5 mg/dl (0.2-1.3); Calcium 9.7 mg/dl (8.4-10.2); Carbon Dioxide 29 mmol/L (22.0-30.0); Globulin 2.9 g/dL (1.3-3.2); Glucose 75 mg/dl (74-100); Total Protein,Serum 7.9 g/dl (6.3-8.2)
[2020-08-06 15:02] LABS: Thyroid Stimulating Hormone 1.15 uIU/mL (0.465-4.68)
[2020-08-06 15:04] LABS: Thyroid Stimulating Hormone 1.16 uIU/mL (0.465-4.68)
[2020-08-06 15:35] LABS: Hemoglobin A1C 4.9 % (4.0-6.0)
[2020-08-06 15:39] LABS: Free Thyroxine Index 3.1 ug/dL (5.93-13.13); Triiodothryronine (T3) Uptake 34 % (23.5-40.5)
[2020-08-08 09:54] LABS: Thyroid Peroxidase Antibodies <9 IU/mL (0-34)
[2020-08-11 16:12] LABS: Thyroid Stimulating Immunoglob <0.10 IU/L (0.00-0.55)
== END ==
PROVIDERS: Visit Provider Internal Medicine Adolescent Medicine
DX: R68.89 Other general symptoms and signs (principal)
CPT/HCPCS: 36415; 80053; 83036; 84436; 84443; 84445; 84479; 85025; 86376

== ENCOUNTER 2021-02-02 15:00 | Outpatient (RCR) | payer BC, SELFPAY ==
--- NOTE | 2021-01-20 10:47 | HMH.PTOPEV ---
PT Outpatient Evaluation Rehab PT Outpatient Evaluation Start: 01/20/21 10:25 Freq: Status: Active Protocol: Document 01/20/21 10:26 [place] (Rec: 01/20/21 10:46 [place] [id number]) Electronically Signed By Carlos A Mendez, PT 01/20/21 10:26 Outpatient Therapy Subjective History Subjective History Patient is a 25 year old female presenting to outpatient PT with reports of L knee pain. Symptoms local to medial and lateral joint lines (M>L). Most recent imaging negative. Signs and symptoms consistent with possible MCL tear. No comorbidities to report. Chief Complaint Pain,Stiff,Swelling,Gives out/ Unstable Symptom Type Ache,Tingling Symptoms Relieved By Ice,Prescription Meds Symptoms Aggravated By Standing,Physical Activity, Walking Prior Functional Limitations None Current Functional Limitations Standing,Recreation Activity, Walking,Stairs Symptom Description Intermittent Level of pain today (0-10) 2 Pain scale - at its best (0-10) 0 Pain scale - at its worst (0-10) 8 Hip/Knee Eval Gait Observation General Gait Pattern Observation Antalgic Gait,Decrease Weight Bear (L) Assistive Device Assistive Devices None / NA Palpation Tenderness left Knee Palpation Finding Tenderness Knee Palpation Overall Comment med/lat joint line 3/4, patellar tendon 2/4 MMT Hip Flexion Strength Grade 4 Good Hip Abduction Strength Grade 3+ Fair+ Hip Adduction Strength Grade 3+ Fair+ Hip Extension Strength Grade 4- Good- Hip External Rotation Strength Grade 3+ Fair+ Hip Internal Rotation Strength Grade 4- Good- Knee Extension Strength Grade 4- Good- Knee Flexion Strength Grade 3+ Fair+ ROM Hip ROM Reason Not Measured Within Functional Limits Knee ROM Reason Not Measured Within Functional Limits Special Tests Knee Anterior Hi Test Negative Left Knee Pivot Shift Test Negative Left Knee Valgus Stress Test Positive Left Knee Varus Stress Test Negative Left Outpatient Therapy Assessment Impairments Problems/Impairmments Palpation Tenderness,Impaired Strength,Impaired Household Care,Impaired Stair Climbing, Impaired Incline Stepping, Impaired Stepping on Uneven
== END 2021-02-02 15:05 | disposition home or self-care (01) ==
LOC: PT 15:00
PROVIDERS: Visit Provider Nurse Practitioner Family
DX: M25.562 Pain in left knee (principal)
CPT/HCPCS: 97010; 97014; 97033; 97035; 97110; 97163; 97760; G0283

== ENCOUNTER → 2021-02-07 14:34 | Outpatient (CLI) | payer BC, SELFPAY ==
--- NOTE | 2021-02-09 12:55 | PC.NURSE ---
attempted to contact about positive covid results, unable to reach at this time
== END ==
PROVIDERS: PCP Internal Medicine Adolescent Medicine; Visit Provider Nurse Practitioner
DX: U07.1 COVID-19 (principal)
CPT/HCPCS: C9803; U0003; U0005

== ENCOUNTER 2021-03-21 17:17 | Emergency (ER) | payer BC, SELFPAY ==
[2021-03-21 19:15] VITALS: BP 96/63; PULSE 89; RESP 18; TEMP 36.6; O2SAT 98; BMI 17.7
--- NOTE | 2021-03-21 19:23 | HMH.EDUTC ---
[facility] [place] Disposition Clinical Impression: Strep throat Disposition: Home, Self-Care Condition on Discharge: Good Instructions: DI for Strep Throat, Strep Throat Additional Instructions: Drink plenty of fluids. Take tylenol or ibuprofen for pain or fever. Take the medications as directed. Follow up with your regular doctor. GO TO THE ER FOR ANY WORSENING SYMPTOMS Throw your tooth brush away and get a new one. Prescriptions: Ondansetron [Zofran 4mg ODT] 4 mg PO Q8HP PRN #20 tab PRN Reason: Nausea Transmission Status: Pending to [facility] Amoxicillin [Amoxicillin 500mg Tab] 500 mg PO TID 10 Days #30 tab Transmission Status: Pending to [id number] predniSONE [Deltasone 10mg tablet] 10 mg PO BID 3 Days #6 tab Transmission Status: Pending to [id number] Referrals: Thierry Driver MD [Primary Care Provider] - Forms: Work/School Release Time of Disposition: 20:06 Medical Decision Making - Medical Records Medical records reviewed: No: I reviewed the patient's medical records. - Malachi Inquiry Pt receiving controlled substance: No Vital Signs: 03/21/21 19:15 03/21/21 19:46 Temperature 97.8 F 97.8 F Temperature Source Oral Pulse Rate 89 Pulse Rate [Right Brachial] 89 Respiratory Rate 18 18 Blood Pressure 96/63 L Blood Pressure [Right Arm] 96/63 L Blood Pressure Mean [Right Arm] 74 Blood Pressure Source [Right Arm] Automatic Cuff Blood Pressure Position [Right Arm] Sitting 02 Sat by Pulse Oximetry 98 Oxygen Delivery Method Room Air - Lab Data Lab results reviewed: Yes: I reviewed the patient's lab results. Lab Results 03/21/21 19:28: Strep Scn Rapid Clinic Positive A [facility] [place] HPI - General Stated complaint: Sore throat, runny nose, congestion Time Seen by Provider: 03/21/21 19:23 - History of Present Illness Provider Complaint: She c/o sore throat since yesterday. Her children have strep throat currently. She denies significant cough or congestion. - Related Data Previous Rx's Medication Instructions Recorded citalopram 10 mg tablet 10 mg PO DAILY #30 tab 08/05/19 Fluticasone Propionate [Flonase 1 - 2 spr NS DAILY #1 bottle 11/02/19 50mcg nasal spray 16gm] Amoxicillin [Amoxicillin 500mg Tab] 500 mg PO TID 10 Days #30 tab 03/21/21 Ondansetron [Zofran 4mg ODT] 4 mg PO Q8HP PRN #20 tab 03/21/21 predniSONE [Deltasone 10mg tablet] 10 mg PO BID 3 Days #6 tab 03/21/21 Allergies Allergy/AdvReac Type Severity Reaction Status Date / Time No Known Allergies Allergy Verified 07/21/20 14:17 [facility] History - Hepatitis A Screen Attestation statement:: This patient has been screened for Hepatitis A risk factors. I have reviewed the patient's past medical history: Yes Medical History: Denies:: Cancer, Diabetes Mellitus Type 1, Diabetes Mellitus Type 2, Internal Pacemaker, MRSA, Seizures Other Medical History: Denies: Blood Transfusion Reaction Laterality Cases: Bilateral: Tonsillectomy Other Surgeries: Yes: No Previous Surgery. No: , Pacemaker Amputation: No Fractures: No - Social History Smoking Status: Current every day smoker Tobacco Type: cigarettes # Packs/Day (cigarettes): 1 Alcohol Intake: never Alcohol Intake Frequency:: a few times a month Substance Use Type: denies use Occupational Status: employed Housing: house Household Members: spouse, children Family Hx:: No significant family history ROS Obtained: Yes All systems reviewed & no additional complaints - Constitutional Constitutional: Reports as per HPI - Eyes Eyes: Denies eye discharge - ENT Ears, Nose, Mouth, and Throat: Reports as per HPI - Cardiovascular Cardiovascular: Denies chest pain - Respiratory Respiratory: Denies chest congestion, Denies cough, Denies dyspnea, Denies stridor, Denies wheezing - Gastrointestinal Gastrointestingal: Reports: nausea. Denies: abdominal pain, diarrhea, vomiting Physical Exam - Gener
[2021-03-21 19:30] LABS: UTC Strep Screen (Rapid) Positive (Negative)
[2021-03-21 19:46] VITALS: BP 96/63; PULSE 89; RESP 18; TEMP 36.6; O2SAT 98
== END 2021-03-21 20:16 | disposition home or self-care (01) ==
PROVIDERS: Emergency Provider Nurse Practitioner Family; PCP Internal Medicine Adolescent Medicine
DX: J02.0 Streptococcal pharyngitis (principal)
CPT/HCPCS: 87880; 99202; G0463